=== PATIENT | female | born 2000 | race African-American/Black ===

== ENCOUNTER 2024-07-29 01:10 | Emergency (ER) | payer SELFPAY ==
[~2024-07-29] VITALS: Ht 162.6 cm; Wt 65.0 kg
[2024-07-29 01:15] VITALS: TEMP 36.9; O2SAT 100
[2024-07-29] MEDS: KETOROLAC 30MG/ML VIAL IM ONE (04:33)
[2024-07-29 05:43] VITALS: BP 123/80; PULSE 76; RESP 20; O2SAT 100
== END 2024-07-29 05:45 | disposition home or self-care (01) ==
LOC: ER 01:10
DX: M79.641 Pain in right hand (principal); F41.9 Anxiety disorder, unspecified; M79.89 Other specified soft tissue disorders
CPT/HCPCS: 99283; 73130; 96372; J1885